=== PATIENT | male | born 1935 | race Caucasian/White ===

== ENCOUNTER 2017-11-06 10:57 | Emergency (ER) | payer MEDICARE, BC ==
[~2017-11-06] VITALS: Ht 172.7 cm; Wt 60.0 kg
[~2017-11-06 10:57] MED LIST: IMIT50TA PO; PROP1TAB; SUBO2MIS PO; SULF10SO3 LEFT EYE; TRAZ50TA12 PO
[2017-11-06 11:20] VITALS: BP 147/87; PULSE 62; RESP 17; TEMP 98.7; O2SAT 97
[2017-11-06] MEDS ORDERED: SODIUM CHLORIDE 0.9% FLUSH 10 ML FLUSH IV FLUSH PRN (12:15)
--- NOTE | 2017-11-06 12:19 | PD ---
HPI . Weakness Chief Complaint: General Weakness Time Seen by Provider: 12:01 Travel History International Travel<30 days: No Contact w/Intl Traveler<30days: No Traveled to known affect area: No History of Present Illness HPI Patient presents with ongoing symptoms of weakness and anxiety for many months. He states that it has been getting worse for the last 2 weeks. He reports nausea, poor appetite, weight loss, insomnia and anxiety. He states that he was evaluated and [facility] with a CT of his abdomen and pelvis and an EGD in about May and that these studies were normal. He is unaware of any modifying factors. [facility], LATER [facility] Past Medical History Arthritis: Yes (L5) Asthma: No Autoimmune Disease: No Anxiety: Yes Depression: Yes Heart Rhythm Problems: No Cancer: Yes (Basal Cell Skin CA 2012) Cardiovascular Problems: Yes High Cholesterol: No Chemotherapy: No Chest Pain: No Congestive Heart Failure: No COPD: No Cerebrovascular Accident: No Diabetes: No Diminished Hearing: No Gastrointestinal Disorders: Yes (becomes constipated easily; manages with daily Miralax) GERD: No Genitourinary: No Headaches: Yes Hiatal Hernia: No Heparin Induced Thrombocytopen: No Hypertension: Yes Immune Disorder: No Implanted Vascular Access Dvce: No Kidney Stones: No Musculoskeletal: Yes (L hip Fx 1 year ago) Neurologic: No Psychiatric: Yes Reproductive: No Respiratory: Yes (BRONCHIAL PNEUMONIA as a child) Migraines: No Pneumonia: Yes ( CHILD) 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) Renal Failure: No Seizures: No Sickle Cell Disease: No Sleep Apnea: No Thyroid Disease: No Ulcer: No Tetanus Vaccination: Never Vaccinated Influenza Vaccination: No Past Surgical History AICD: No Arteriovenous Shunt: No Eye Surgery: Yes (L eye cataract w/ lens) Insulin Pump: No Joint Replacement: No Pacemaker: No Tonsillectomy: Yes Other Surgery: Yes (SINUS SX.,SKIN CANCER REMOVAL) Social History Alcohol Use: No Tobacco Use: No Substance Use: No Allergies-Medications (Allergen,Severity, Reaction): Coded Allergies: tramadol (Unverified Allergy, Severe, HIVES, 11/06/17) hydrocodone (Unverified Allergy, Intermediate, Hives, 11/06/17) oxycodone (Unverified Allergy, Unknown, 11/06/17) causes some itching but no hives according to pt and he also states that it keeps him awake Uncoded Allergies: Percocet (Adverse Reaction, Unknown, Nausea/Vomiting, 12/19/15) Pt states that Percocet causes nausea but that taking Oxycodone alone causes no side effects Reported Meds & Prescriptions Reported Meds & Active Scripts Active Sulfacetamide Opth Drops 10 % Soln 1 Drop LEFT EYE Q2H Reported Imitrex (Sumatriptan Succinate) 50 Mg Tab 50 Mg PO ONCE PRN If a satisfactory response has not been obtained at 2 hours, a second dose may be administered Propecia (Finasteride (Alopecia)) 1 Mg Tab Suboxone Sublingual Film (Buprenorphine-Naloxone Sublingual Film) Unknown Strength Film 2 Mg PO BID Unique ID number required: Trazodone (Trazodone HCl) Unknown Strength Tab Unknown Dose PO HS Review of Systems Except as stated in HPI: all other systems reviewed are Neg General / Constitutional: Positive: Weight Loss, No: Fever, Chills Gastrointestinal: Positive: Nausea, Loss of Appetite, No: Vomiting, Diarrhea Genitourinary: No: Urgency, Frequency, Dysuria Physical Exam Narrative GENERAL: Patient is lying on the stretcher awake and alert and able to converse with me without difficulty. Weight today is 60 kg. That gives him a BMI of 20. SKIN: warm/dry. Normal color and turgor. HEAD: Normocephalic. Atraumatic. EYES: Pupils equal and round. No scleral icterus. No injection or drainage. ENT: No nasal bleeding or discharge. Mucous membranes pink and moist. NECK: Trachea midline. Full range of motion without pain.. CARDIOVASCULAR: Regular rate and rhythm. Heart sounds normal. RESPIRATORY: No accessory muscle use. Clear to auscultation. Breath sounds equal bilaterally. GASTROINTESTINAL: Abdomen soft. Nontender. Bowel sounds present. Nondistended. MUSCULOSKELETAL: No obvious deformities. NEUROLOGICAL: Awake and alert. No obvious cranial nerve deficits. Motor grossly within normal limits. Normal speech. PSYCHIATRIC: Appropriate mood and affect; insight and judgment normal. Data Data Last Documented VS Vital Signs Date Time Temp Pulse Resp B/P (MAP) Pulse Ox O2 Delivery O2 Flow Rate FiO2 11/06/17 11:20 98.7 62 17 147/87 (107) 97 Orders Orders Complete Blood Count With Diff (11/06/17 12:07) Comprehensive Metabolic Panel (11/06/17 12:07) Lactic Acid (11/06/17 12:07) Urinalysis - C+S If Indicated (11/06/17 12:07) Iv Access Insert/Monitor (11/06/17 12:07) Sodium Chloride 0.9% Flush (Ns Flush) (11/06/17 12:15) Electrocardiogram (11/06/17 12:07) Cath For Specimen (11/06/17 14:06) Labs Laboratory Tests Test 11/06/17 12:30 11/06/17 14:25 White Blood Count 6.0 TH/MM3 Red Blood Count 4.20 MIL/MM3 Hemoglobin 13.2 GM/DL Hematocrit 37.9 % Mean Corpuscular Volume 90.4 FL Mean Corpuscular Hemoglobin 31.4 PG Mean Corpuscular Hemoglobin Concent 34.7 % Red Cell Distribution Width 11.3 % Platelet Count 215 TH/MM3 Mean Platelet Volume 7.2 FL Neutrophils (%) (Auto) 54.1 % Lymphocytes (%) (Auto) 30.2 % Monocytes (%) (Auto) 12.2 % Eosinophils (%) (Auto) 2.9 % Basophils (%) (Auto) 0.6 % Neutrophils # (Auto) 3.3 TH/MM3 Lymphocytes # (Auto) 1.8 TH/MM3 Monocytes # (Auto) 0.7 TH/MM3 Eosinophils # (Auto) 0.2 TH/MM3 Basophils # (Auto) 0.0 TH/MM3 CBC Comment DIFF FINAL Differential Comment Blood Urea Nitrogen 15 MG/DL Creatinine 0.77 MG/DL Random Glucose 96 MG/DL Total Protein 6.7 GM/DL Albumin 3.4 GM/DL Calcium Level 8.6 MG/DL Alkaline Phosphatase 58 U/L Aspartate Amino Transf (AST/SGOT) 18 U/L Alanine Aminotransferase (ALT/SGPT) 13 U/L Total Bilirubin 0.7 MG/DL Sodium Level 128 MEQ/L Potassium Level 3.9 MEQ/L Chloride Level 94 MEQ/L Carbon Dioxide Level 26.4 MEQ/L Anion Gap 8 MEQ/L Estimat Glomerular Filtration Rate 97 ML/MIN Lactic Acid Level 1.6 mmol/L Urine Collection Type CLEAN CATCH Urine Color YELLOW Urine Turbidity CLEAR Urine pH 6.0 Urine Specific [place] 1.016 Urine Protein NEG mg/dL Urine Glucose (UA) NEG mg/dL Urine Ketones NEG mg/dL Urine Occult Blood NEG Urine Nitrite NEG Urine Bilirubin NEG Urine Leukocyte Esterase NEG Urine RBC 0-3 /hpf Urine WBC 3-5 /hpf Urine Squamous Epithelial Cells 0-5 /hpf Urine Amorphous Sediment FEW Microscopic Urinalysis Comment CULT NOT INDICATED Urine Collection Time 1429 MDM Medical Decision Making Medical Screen Exam Complete: Yes Emergency Medical Condition: Yes Medical Record Reviewed: Yes (this patient is on Suboxone. Chronic medical conditions include glaucoma, degenerative disc disease and chronic back pain. Medications include Suboxone, trazodone, Imitrex and sulfacetamide eyedrops. Allergies include Percocet, Vicodin and Ultram. There are no previous weights reported in his records.) Interpretation(s) EKG shows a sinus rhythm with no acute ischemic changes Differential Diagnosis Differential diagnosis of weakness includes but is not limited to infection, CVA , electrolyte disturbance, renal failure, hypoglycemia, UTI, ACS, acute blood loss Narrative Course This patient presents with the nonspecific complaint of weakness. Onset has been many months. He does not appear acutely ill. He looks well-hydrated. Basic labs are pending. CBC & BMP Diagram 11/06/17 12:30 Total Protein 6.7, Albumin 3.4, Calcium Level 8.6, Alkaline Phosphatase 58, Aspartate Amino Transf (AST/SGOT) 18, Alanine Aminotransferase (ALT/SGPT) 13, Total Bilirubin 0.7 This low sodium is not abnormal for him. UA is negative. The history, exam, diagnostic testing, and current condition do not suggest any significant pathology to warrant further testing, continued ED treatment, admission, or surgical evaluation at this point. No EMC was found. The patient 's condition is stable and appropriate for discharge. Diagnosis Primary Impression: Weakness Patient Instructions: General Instructions, Weakness (DC) Disposition: 01 DISCHARGE HOME Condition: Stable Keira Pardo MD Nov 06, 2017 12:19
[2017-11-06 12:43] LABS: AUTOMATED NEUTROPHIL # 3.3 TH/MM3 (1.8-7.7); BASOPHIL % 0.6 % (0.0-2.0); EOSINOPHIL # 0.2 TH/MM3 (0-0.4); EOSINOPHIL % 2.9 % (0.0-4.0); HEMATOCRIT 37.9 % (39.0-51.0); HEMOGLOBIN 13.2 GM/DL (13.0-17.0); LYMPH % 30.2 % (9.0-44.0); LYMPHOCYTE # 1.8 TH/MM3 (1.0-4.8); MEAN CELL VOLUME 90.4 FL (80.0-100.0); MEAN CORPUSCULAR HEMOGLOBIN 31.4 PG (27.0-34.0); MEAN CORPUSCULAR HGB CONC 34.7 % (32.0-36.0); MEAN PLATELET VOLUME 7.2 FL (7.0-11.0); MONO % 12.2 % (0.0-8.0); MONOCYTE # 0.7 TH/MM3 (0-0.9); NEUT % 54.1 % (16.0-70.0); PLATELET COUNT 215 TH/MM3 (150-450); RED CELL DISTRIBUTION WIDTH 11.3 % (11.6-17.2)
[2017-11-06 12:50] LABS: CHLORIDE 94 MEQ/L (98-107); SODIUM (NA) 128 MEQ/L (136-145)
[2017-11-06 12:54] LABS: CALCIUM 8.6 MG/DL (8.5-10.1)
[2017-11-06 12:55] LABS: ALBUMIN 3.4 GM/DL (3.4-5.0); BICARBONATE 26.4 MEQ/L (21.0-32.0); BLOOD UREA NITROGEN 15 MG/DL (7-18); GLUCOSE,RANDOM 96 MG/DL (74-106)
[2017-11-06 12:58] LABS: ALT (GPT) 13 U/L (12-78); AST (GOT) 18 U/L (15-37); CREATININE 0.77 MG/DL (0.60-1.30); GLOMERULAR FILTRATION RATE 97 ML/MIN (>89)
[2017-11-06 13:00] LABS: ALKALINE PHOSPHATASE 58 U/L (45-117); TOTAL BILIRUBIN ADULT 0.7 MG/DL (0.2-1.0); TOTAL PROTEIN 6.7 GM/DL (6.4-8.2)
[2017-11-06 14:33] LABS: BILIRUBIN, URINE NEG (NEG); BLOOD, URINE NEG (NEG); GLUCOSE,URINE NEG (NEG); KETONE, URINE NEG (NEG); NITRITE,URINE NEG (NEG); URINE LEUKOCYTE ESTERASE NEG (NEG)
[2017-11-06 14:41] LABS: URINE COLOR YELLOW (YELLW/STRAW)
[2017-11-06 14:42] LABS: AMORPHOUS SEDIMENT, URINE FEW; RBC, URINE 0-3 /hpf (0-3); SQUAMOUS EPITHELIAL CELL URINE 0-5 /hpf (0-5)
--- NOTE | 2017-11-07 19:19 | EKG ---
Date Performed: 11/06/2017 Time Performed: 12:17:26 PTAGE: 82 years EKG: SINUS BRADYCARDIA WITH SINUS ARRHYTHMIA POSSIBLE RIGHT VENTRICULAR CONDUCTION DELAY BORDERL INE ECG Since the prior tracing, there has been no significant change PREVIOUS TRACING : 12/15/13 @1307 DOCTOR: Jan Calzada Interpretating Date/Time 11/07/2017 19:19:18
== END 2017-11-06 15:20 | disposition home or self-care (01) ==
LOC: PHED 10:57
DX: R53.1 Weakness (principal); R11.0 Nausea; R63.0 Anorexia; R63.4 Abnormal weight loss; G47.00 Insomnia, unspecified; F41.9 Anxiety disorder, unspecified; R94.31 Abnormal electrocardiogram [ECG] [EKG]; F32.9 Major depressive disorder, single episode, unspecified; I10 Essential (primary) hypertension; H40.9 Unspecified glaucoma; Z85.828 Personal history of other malignant neoplasm of skin; Z87.19 Personal history of other diseases of the digestive system
CPT/HCPCS: 80053; 81001; 83605; 85025; 93005; 99284

== ENCOUNTER 2017-12-09 00:53 | Observation (INO) | payer MEDICARE, BC ==
[2017-12-09] VITALS (14 sets, daily range): BP systolic 123–182; BP diastolic 58–89; PULSE 52–66; RESP 12–20; TEMP 97.8–98.2; O2SAT 96–100
[~2017-12-09] VITALS: Ht 177.8 cm; Wt 75.0 kg
[2017-12-09] MEDS ORDERED: SODIUM CHLOR 0.9% 1000 ML INJ 1,000 ML IV SCH (01:06)
[2017-12-09] MEDS ORDERED: BUSP5TAB PO (01:08)
[2017-12-09 01:33] LABS: AUTOMATED NEUTROPHIL # 3.4 TH/MM3 (1.8-7.7); BASOPHIL % 0.3 % (0.0-2.0); EOSINOPHIL # 0.5 TH/MM3 (0-0.4); EOSINOPHIL % 7.2 % (0.0-4.0); HEMATOCRIT 39.1 % (39.0-51.0); HEMOGLOBIN 13.5 GM/DL (13.0-17.0); LYMPH % 29.9 % (9.0-44.0); MEAN CELL VOLUME 91.9 FL (80.0-100.0); MEAN CORPUSCULAR HEMOGLOBIN 31.7 PG (27.0-34.0); MEAN CORPUSCULAR HGB CONC 34.5 % (32.0-36.0); MEAN PLATELET VOLUME 7.8 FL (7.0-11.0); MONO % 12.2 % (0.0-8.0); MONOCYTE # 0.8 TH/MM3 (0-0.9); NEUT % 50.4 % (16.0-70.0); PLATELET COUNT 168 TH/MM3 (150-450); RED BLOOD COUNT 4.26 MIL/MM3 (4.50-5.90); RED CELL DISTRIBUTION WIDTH 12.5 % (11.6-17.2); WHITE BLOOD COUNT 6.8 TH/MM3 (4.0-11.0)
--- NOTE | 2017-12-09 01:36 | RADRPT ---
EXAM DATE/TIME: 12/09/2017 01:23 [facility] COMPARISON: No previous studies available for comparison. INDICATIONS : Altered mental status. RADIATION DOSE: 64.63 CTDIvol (mGy) MEDICAL HISTORY : Cardiovascular disease. Hernia, hiatal. Hypertension. SURGICAL HISTORY : None. ENCOUNTER: Initial ACUITY: 1 day PAIN SCALE: Non-responsive LOCATION: cranial TECHNIQUE: Multiple contiguous axial images were obtained of the head. Using automated exposure control and adj ustment of the mA and/or kV according to patient size, radiation dose was kept as low as reasonably a chievable to obtain optimal diagnostic quality images. DICOM format image data is available electro nically for review and comparison. FINDINGS: CEREBRUM: Mild cortical and central atrophy. Significant periventricular small vessel ischemic demyelination. No evidence of midline shift, mass lesion, hemorrhage or acute infarction. No extra-axial fluid darlene ections are seen. POSTERIOR FOSSA: The cerebellum and brainstem are intact. The 4th ventricle is midline. The cerebellopontine angle i s unremarkable. EXTRACRANIAL: The visualized portion of the orbits is intact. SKULL: The calvaria is intact. No evidence of skull fracture. CONCLUSION: 1. Chronic changes with some cortical and central atrophy as well as moderately severe periventricula r small vessel ischemic demyelination. 2. Nothing acute. Phani Guerrero MD on December 09, 2017 at 1:33 Board Certified Radiologist. This report was verified electronically.
[2017-12-09 01:51] LABS: ALBUMIN 3.4 GM/DL (3.4-5.0); ALT (GPT) 19 U/L (12-78); AST (GOT) 29 U/L (15-37); BICARBONATE 27.7 MEQ/L (21.0-32.0); BLOOD UREA NITROGEN 19 MG/DL (7-18); CALCIUM 8.3 MG/DL (8.5-10.1); CHLORIDE 100 MEQ/L (98-107); GLOMERULAR FILTRATION RATE 72 ML/MIN (>89); GLUCOSE,RANDOM 93 MG/DL (74-106); SODIUM (NA) 136 MEQ/L (136-145)
[2017-12-09 01:55] LABS: ALKALINE PHOSPHATASE 64 U/L (45-117); PROTHROMBIN TIME - PATIENT 10.6 SEC (9.8-11.6); TOTAL BILIRUBIN ADULT 0.7 MG/DL (0.2-1.0); TOTAL PROTEIN 7.1 GM/DL (6.4-8.2); TROPONIN I LESS THAN 0.02 NG/ML (0.02-0.05)
[2017-12-09 01:57] LABS: ACETAMINOPHEN LESS THAN 2.0 MCG/ML (10.0-30.0)
--- NOTE | 2017-12-09 02:24 | RADRPT ---
EXAM DATE/TIME: 12/09/2017 01:42 [facility] COMPARISON: CHEST SINGLE AP, November 30, 2015, 17:28. INDICATIONS : Confusion, nausea, weakness, unable to stand. MEDICAL HISTORY : None. SURGICAL HISTORY : None. ENCOUNTER: Initial ACUITY: 1 day PAIN SCORE: Non-responsive. LOCATION: Bilateral chest FINDINGS: A single view of the chest demonstrates the lungs to be symmetrically hypoinflated with bibasilar ate lectatic changes. Accounting for low lung lines, heart size is normal. Osseous structures are intact. CONCLUSION: Hypoinflation with bibasilar atelectatic changes. Phani Guerrero MD on December 09, 2017 at 2:22 Board Certified Radiologist. This report was verified electronically.
[2017-12-09] MEDS: SODIUM CHLORIDE 0.9% FLUSH 10 ML FLUSH IV FLUSH PRN (03:28)
[2017-12-09 04:19] LABS: BACTERIA, URINE RARE /hpf; BILIRUBIN, URINE NEG (NEG); BLOOD, URINE NEG (NEG); GLUCOSE,URINE NEG (NEG); KETONE, URINE NEG (NEG); MUCUS URINE FEW /lpf (OCC); NITRITE,URINE NEG (NEG); SQUAMOUS EPITHELIAL CELL URINE <1 /hpf (0-5); URINE COLOR YELLOW (YELLW/STRAW); URINE LEUKOCYTE ESTERASE NEG (NEG)
[2017-12-09] MEDS ORDERED: NALOXONE HCL 0.4 MG/ML AMP IV PUSH PRN (04:30)
--- NOTE | 2017-12-09 05:05 | PD ---
HPI Chief Complaint: Altered Mental Status Time Seen by Provider: 01:06 Travel History International Travel<30 days: No Contact w/Intl Traveler<30days: No Traveled to known affect area: No History of Present Illness HPI Patient is an 82 year old male BIBEMS due to AMS. EMS states he was found in the bathroom by family on the ground. Per , he takes Suboxone for pain and was recently started on Xanax for anxiety. He also take Phenergan for nausea, an antidepressant and marijuana candy. Patient is awake, but very confused and does not provide any history. PFSH Past Medical History Arthritis: Yes (L5) Asthma: No Autoimmune Disease: No Anxiety: Yes Depression: Yes Heart Rhythm Problems: No Cancer: Yes (Basal Cell Skin CA 2012) Cardiovascular Problems: Yes High Cholesterol: No Chemotherapy: No Chest Pain: No Congestive Heart Failure: No COPD: No Cerebrovascular Accident: No Diabetes: No Diminished Hearing: No Gastrointestinal Disorders: Yes (becomes constipated easily; manages with daily Miralax) GERD: No Genitourinary: No Headaches: Yes Hiatal Hernia: No Heparin Induced Thrombocytopen: No Hypertension: Yes Immune Disorder: No Implanted Vascular Access Dvce: No Kidney Stones: No Musculoskeletal: Yes (L hip Fx 1 year ago) Neurologic: No Psychiatric: Yes Reproductive: No Respiratory: Yes (BRONCHIAL PNEUMONIA as a child) Migraines: No Pneumonia: Yes ( CHILD) 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) Renal Failure: No Seizures: No Sickle Cell Disease: No Sleep Apnea: No Thyroid Disease: No Ulcer: No Past Surgical History AICD: No Arteriovenous Shunt: No Eye Surgery: Yes (L eye cataract w/ lens) Insulin Pump: No Joint Replacement: No Pacemaker: No Tonsillectomy: Yes Other Surgery: Yes (SINUS SX.,SKIN CANCER REMOVAL) Social History Alcohol Use: No Tobacco Use: No Substance Use: No Allergies-Medications (Allergen,Severity, Reaction): Coded Allergies: tramadol (Unverified Allergy, Severe, HIVES, 12/09/17) hydrocodone (Unverified Allergy, Intermediate, Hives, 12/09/17) oxycodone (Unverified Allergy, Unknown, 12/09/17) causes some itching but no hives according to pt and he also states that it keeps him awake Uncoded Allergies: Percocet (Adverse Reaction, Unknown, Nausea/Vomiting, 12/19/15) Pt states that Percocet causes nausea but that taking Oxycodone alone causes no side effects Reported Meds & Prescriptions Reported Meds & Active Scripts Active Reported Buspirone (Buspirone HCl) 5 Mg Tab 5 Mg PO BID Imitrex (Sumatriptan Succinate) 50 Mg Tab 50 Mg PO ONCE PRN If a satisfactory response has not been obtained at 2 hours, a second dose may be administered Propecia (Finasteride (Alopecia)) 1 Mg Tab Suboxone Sublingual Film (Buprenorphine-Naloxone Sublingual Film) Unknown Strength Film 2 Mg PO BID Unique ID number required: Trazodone (Trazodone HCl) Unknown Strength Tab Unknown Dose PO HS Review of Systems ROS Limitations: Unresponsive Physical Exam Exam Limitations: Altered Mental Status Narrative GENERAL: Altered, but is awake. SKIN: Focused skin assessment warm/dry. No wounds or signs of infection. HEAD: Atraumatic. Normocephalic. EYES: Pupils equal and round and reactive. No scleral icterus. EOMI. ENT: Mucous membranes pink and moist. NECK: Trachea midline. No JVD. CARDIOVASCULAR: Regular rate and rhythm. No murmur appreciated. RESPIRATORY: No accessory muscle use. Clear to auscultation. Breath sounds equal bilaterally. GASTROINTESTINAL: Abdomen soft, non-tender, nondistended. MUSCULOSKELETAL: No obvious deformities. No clubbing. No cyanosis. No edema. NEUROLOGICAL: Lethargic, but awakens. No obvious cranial nerve deficits. Not moving his left side. Data Data Last Documented VS Vital Signs Date Time Temp Pulse Resp B/P (MAP) Pulse Ox O2 Delivery O2 Flow Rate FiO2 12/09/17 01:17 55 14 154/74 (100) 99 Nasal Cannula 2.00 12/09/17 01:08 97.8 Orders Orders Electrocardiogram (12/09/17 01:06) Ammonia (12/09/17 01:06) Complete Blood Count With Diff (12/09/17 01:06) Comprehensive Metabolic Panel (12/09/17 01:06) Prothrombin Time / Inr (Pt) (12/09/17 01:06) Act Partial Throm Time (Ptt) (12/09/17 01:06) Troponin I (12/09/17 01:06) Urinalysis - C+S If Indicated (12/09/17 01:06) Lactic Acid Sepsis Protocol (12/09/17 01:06) Chest, Single Ap (12/09/17 01:06) Ct Brain W/O Iv Contrast(Rout) (12/09/17 01:06) Blood Glucose (12/09/17 01:06) Ecg Monitoring (12/09/17 01:06) Iv Access Insert/Monitor (12/09/17 01:06) Cath For Specimen (12/09/17 01:06) Oximetry (12/09/17 01:06) Sodium Chloride 0.9% Flush (Ns Flush) (12/09/17 01:15) Sodium Chlor 0.9% 1000 Ml Inj (Ns 1000 M (12/09/17 01:06) Drug Screen, Random Urine (12/09/17 01:06) Alcohol (Ethanol) (12/09/17 01:06) Tylenol (Acetaminophen) (12/09/17 01:06) Salicylates (Aspirin) (12/09/17 01:06) Admit Order (Ed Use Only) (12/09/17 ) Labs Laboratory Tests Test 12/09/17 01:10 12/09/17 01:15 Lactic Acid Level 1.1 mmol/L White Blood Count 6.8 TH/MM3 Red Blood Count 4.26 MIL/MM3 Hemoglobin 13.5 GM/DL Hematocrit 39.1 % Mean Corpuscular Volume 91.9 FL Mean Corpuscular Hemoglobin 31.7 PG Mean Corpuscular Hemoglobin Concent 34.5 % Red Cell Distribution Width 12.5 % Platelet Count 168 TH/MM3 Mean Platelet Volume 7.8 FL Neutrophils (%) (Auto) 50.4 % Lymphocytes (%) (Auto) 29.9 % Monocytes (%) (Auto) 12.2 % Eosinophils (%) (Auto) 7.2 % Basophils (%) (Auto) 0.3 % Neutrophils # (Auto) 3.4 TH/MM3 Lymphocytes # (Auto) 2.0 TH/MM3 Monocytes # (Auto) 0.8 TH/MM3 Eosinophils # (Auto) 0.5 TH/MM3 Basophils # (Auto) 0.0 TH/MM3 CBC Comment DIFF FINAL Differential Comment Prothrombin Time 10.6 SEC Prothromb Time International Ratio 1.0 RATIO Activated Partial Thromboplast Time 25.2 SEC Blood Urea Nitrogen 19 MG/DL Creatinine 1.00 MG/DL Random Glucose 93 MG/DL Total Protein 7.1 GM/DL Albumin 3.4 GM/DL Calcium Level 8.3 MG/DL Alkaline Phosphatase 64 U/L Aspartate Amino Transf (AST/SGOT) 29 U/L Alanine Aminotransferase (ALT/SGPT) 19 U/L Total Bilirubin 0.7 MG/DL Sodium Level 136 MEQ/L Potassium Level 4.5 MEQ/L Chloride Level 100 MEQ/L Carbon Dioxide Level 27.7 MEQ/L Anion Gap 8 MEQ/L Estimat Glomerular Filtration Rate 72 ML/MIN Troponin I LESS THAN 0.02 NG/ML Salicylates Level LESS THAN 1.7 MG/DL Acetaminophen Level LESS THAN 2.0 MCG/ML Ethyl Alcohol Level LESS THAN 3 MG/DL [facility] Medical Decision Making Medical Screen Exam Complete: Yes Emergency Medical Condition: Yes Medical Record Reviewed: Yes Interpretation(s) ECG shows sinus bradycardia at a rate of 54, no ST elevation or depression Differential Diagnosis drug overdose vs sepsis vs electrolyte abnormalities Narrative Course Patient is an 82 year old male BIBEMS due to AMS. Patient is confused, unable to provide history. IV established, labs sent. Labs show no acute abnormalities. CT head performed shows no acute abnormalities. CXR shows no acute abnormalities. Last [address] 12/09/17105 Signed Impressions: Service Date/Time: Saturday, December 09, 2017 01:23 - CONCLUSION: 1. Chronic changes with some cortical and central atrophy as well as moderately severe periventricular small vessel ischemic demyelination. 2. Nothing acute. Phani Guerrero MD Chest X-Ray 12/09/17105 Signed Impressions: Service Date/Time: Saturday, December 09, 2017 01:42 - CONCLUSION: Hypoinflation with bibasilar atelectatic changes. Phani Guerrero MD This is likely drug interaction/overdose. Patient is still altered. Will place in observation for further management. Diagnosis Primary Impression: Altered mental status Qualified Codes: R41.82 - Altered mental status, unspecified Admitting Information Admitting Physician Requests: Radha Valerio MD Dec 09, 2017 05:05
[2017-12-09] MEDS ORDERED: QUET1TAB7 PO (06:52)
[2017-12-09] MEDS ORDERED: PROM25TA10 PO (06:52)
[2017-12-09] MEDS ORDERED: PANT40TA3 PO (06:52)
[2017-12-09] MEDS ORDERED: BUPR75TA PO (06:52)
[2017-12-09] MEDS ORDERED: ONDA8TAB8 PO (06:52)
[2017-12-09] MEDS ORDERED: ALPR0.5T3 PO (06:52)
[2017-12-09] MEDS ORDERED: VORT1TAB2 PO (06:52)
[2017-12-09] MEDS: busPIRone HCL 5 MG TAB PO SCH ×2 (09:57→21:32)
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
[2017-12-09] MEDS ORDERED: MAGNESIUM HYDROXIDE SUSP 30 ML CUP PO PRN (15:45)
[2017-12-09] MEDS ORDERED: BISACODYL 10 MG SUPP RECTAL PRN (15:45)
[2017-12-09] MEDS ORDERED: LACTULOSE SYRUP 20 GM/30 ML CUP PO PRN (15:45)
[2017-12-09] MEDS ORDERED: ACETAMINOPHEN 325 MG TAB PO PRN (15:45)
[2017-12-09] MEDS ORDERED: SENNOSIDES 8.6 MG TAB PO PRN (15:45)
[2017-12-09] MEDS ORDERED: cloNIDine HCL 0.1 MG TAB PO PRN (16:15)
[2017-12-09] MEDS: PANTOPRAZOLE SOD 40 MG DELAYED RELEASE TAB PO SCH (16:55)
--- NOTE | 2017-12-09 18:07 | EKG ---
Date Performed: 12/09/2017 Time Performed: 01:14:17 PTAGE: 82 years EKG: SINUS BRADYCARDIA WITH SINUS ARRHYTHMIA WITH FIRST DEGREE AV BLOCK ABNORMAL ECG Since PREVIOUS TRACING , no significant change noted PREVIOUS TRACIN11/06/2017 12.17.26 DOCTOR: Alessandro Painting Interpretating Date/Time 12/09/2017 18:06:30
[2017-12-09] MEDS: DOCUSATE SODIUM 50 MG/SENNA 8.6 MG TAB PO SCH (21:32)
[2017-12-10] VITALS (7 sets, daily range): BP systolic 126–164; BP diastolic 62–81; PULSE 66–74; RESP 16–18; TEMP 97.7–98; O2SAT 93–98
[2017-12-10] MEDS: ONDANSETRON HCL 4 MG/2 ML VIAL IVP PRN ×3 (01:57→14:17)
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
[2017-12-10] MEDS: DOCUSATE SODIUM 50 MG/SENNA 8.6 MG TAB PO SCH (08:04)
[2017-12-10] MEDS: PANTOPRAZOLE SOD 40 MG DELAYED RELEASE TAB PO SCH (08:04)
[2017-12-10] MEDS: SODIUM CHLORIDE 0.9% FLUSH 10 ML FLUSH IV FLUSH PRN (08:04)
[2017-12-10] MEDS: busPIRone HCL 5 MG TAB PO SCH (08:04)
[2017-12-10 08:15] LABS: AUTOMATED NEUTROPHIL # 3.7 TH/MM3 (1.8-7.7); BASOPHIL % 0.2 % (0.0-2.0); EOSINOPHIL # 0.2 TH/MM3 (0-0.4); EOSINOPHIL % 3.9 % (0.0-4.0); HEMATOCRIT 37.8 % (39.0-51.0); HEMOGLOBIN 13.1 GM/DL (13.0-17.0); LYMPH % 23.8 % (9.0-44.0); LYMPHOCYTE # 1.5 TH/MM3 (1.0-4.8); MEAN CELL VOLUME 90.7 FL (80.0-100.0); MEAN CORPUSCULAR HEMOGLOBIN 31.3 PG (27.0-34.0); MEAN CORPUSCULAR HGB CONC 34.5 % (32.0-36.0); MEAN PLATELET VOLUME 7.4 FL (7.0-11.0); MONO % 11.5 % (0.0-8.0); MONOCYTE # 0.7 TH/MM3 (0-0.9); NEUT % 60.6 % (16.0-70.0); PLATELET COUNT 181 TH/MM3 (150-450); RED BLOOD COUNT 4.17 MIL/MM3 (4.50-5.90); RED CELL DISTRIBUTION WIDTH 12.1 % (11.6-17.2); WHITE BLOOD COUNT 6.2 TH/MM3 (4.0-11.0)
--- NOTE | 2017-12-10 08:26 | HHI.PR ---
Subjective Remarks Improved some. Patient states. Is more alert and oriented. Says he is not able to eat much. Says he does not have appetite. He also complains of epigastric pain.. No nausea vomiting no diarrhea or constipation. Feels very tired. Objective Vitals Vital Signs Date Time Temp Pulse Resp B/P (MAP) Pulse Ox O2 Delivery O2 Flow Rate FiO2 12/10/17 04:22 74 12/10/17 03:08 98.0 72 16 164/78 (106) 98 12/10/17 00:17 68 12/10/17 00:16 97.7 68 17 126/66 (86) 97 12/09/17 20:46 98.2 66 18 123/58 (79) 96 12/09/17 18:53 59 145/89 (107) 12/09/17 15:36 98.2 56 20 182/78 (112) 98 12/09/17 13:37 60 18 142/76 (98) 96 12/09/17 10:07 58 18 143/69 (93) 98 Room Air I/O 12/09/17 12/09/17 12/09/17 12/10/17 12/10/17 12/10/17 07:00 15:00 23:00 07:00 15:00 23:00 Intake Total 1000 ml 400 ml Balance 1000 ml 400 ml Intake Oral 400 ml IV Total 1000 ml # Voids 2 Result Diagram: 12/10/1728 12/09/17 011 Imaging Last Impressions Head CT 12/09/17 0106 Signed Impressions: Service Date/Time: Saturday, December 09, 2017 01:23 - CONCLUSION: 1. Chronic changes with some cortical and central atrophy as well as moderately severe periventricular small vessel ischemic demyelination. 2. Nothing acute. Phani Guerrero MD Chest X-Ray 12/09/17 010 Signed Impressions: Service Date/Time: Saturday, December 09, 2017 01:42 - CONCLUSION: Hypoinflation with bibasilar atelectatic changes. Phani Guerrero MD Objective Remarks GENERAL: This is a well-nourished, well-developed patient, in no apparent distress. CARDIOVASCULAR: Regular rate and rhythm without murmurs, gallops, or rubs. RESPIRATORY: Clear to auscultation. Breath sounds equal bilaterally. No wheezes , rales, or rhonchi. GASTROINTESTINAL: Abdomen soft, non-tender, nondistended. MUSCULOSKELETAL: Extremities without clubbing, cyanosis, or edema. NEUROLOGICAL: Awake and alert. Oriented to place, year, month, president, person. Cranial nerves II through XII intact. Motor and sensory grossly within normal limits. Bilateral upper extremity equal strength, bilateral lower extremity equal strength all extremities with good strength. normal speech. A/P Problem List: (1) Encephalopathy acute ICD Code: G93.40 - Encephalopathy, unspecified (2) Altered mental status ICD Code: R41.82 - Altered mental status, unspecified Status: Acute Assessment and Plan Patient is an 82 year old male with primary medical history of spondylosis, anxiety, peripheral neuropathy, skin cancer, chronic lumbar pain, HTN who came into the hospital status post fall, altered mental status. Encephalopathy, acute, improving Generalized weakness, improving -Possibly secondary to polypharmacy -Hold off on Suboxone, Xanax, Phenergan -CT of the head showed 1. Chronic changes with some cortical and central atrophy as well as moderately severe periventricular small vessel ischemic demyelination. Nothing acute. -Chest x-ray showed hyperinflation with basilar atelectasis changes -Ammonia level is 18. -Neuro checks. -Monitor labs. Monitor oxygen saturation -Physical therapy eval and treat -Monitor for withdrawal symptoms Depression, anxiety -Continue BuSpar, trintellex -Hold seroquel, trazodone, Xanax, Phenergan Constipation -Bowel regimen DVT prop Lovenox GI prop pantoprazole Code Status Full code Discussed Condition With Patient, nurse Possible discharge later today for able to eat. Problem Qualifiers (1) Altered mental status: Qualified Codes: R41.82 - Altered mental status, unspecified Maris Duvall MD Dec 10, 2017 08:26
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
[2017-12-10 08:44] LABS: BICARBONATE 24.1 MEQ/L (21.0-32.0); CALCIUM 8.5 MG/DL (8.5-10.1); CREATININE 0.73 MG/DL (0.60-1.30)
[2017-12-10] MEDS ORDERED: VORTIOXETINE 10 MG PO SCH (09:00)
--- NOTE | 2017-12-10 09:58 | HHI.FF ---
Face to Face Verification Diagnosis: (1) Encephalopathy acute (2) Impaired activities of daily living Physical Therapy Order: Evaluate and Treat Home Health Nursing Order: Medical education Medication education-adverse effect Nursing assessment with vital signs I have seen patient Chance Casillas on 12/10/17. My clinical findings support the need for the requested home health care services because: Ltd mobility - disease progression Deconditioned w/ increased weakness Limited ability to care for self High risk of falls I certify that my clinical findings support that this patient is homebound because: Impaired cognitive ability/safety Unsteady gait/balance Trista Yoo Dec 10, 2017 09:58
[2017-12-10] MEDS ORDERED: SUMAtriptan SUCCINATE 50 MG TAB PO PRN (10:45)
[2017-12-10] MEDS ORDERED: SODIUM CHLOR 0.9% 1000 ML INJ 1,000 ML IV SCH (13:45)
[2017-12-10] MEDS ORDERED: PANTOPRAZOLE SOD 40 MG DELAYED RELEASE TAB PO ONE (13:45)
[2017-12-11] MEDS ORDERED: PANTOPRAZOLE SOD 20 MG DELAYED RELEASE TAB PO SCH (09:00)
== END 2017-12-10 16:56 | disposition home or self-care (01) ==
LOC: NEPC 00:53 → NEDA 03:39 → NEDH 09:51 → NEPFCDU 13:54
PROVIDERS: ADMIT Hospitalist; ATTEND Hospitalist
DX: G93.40 Encephalopathy, unspecified (principal); R11.0 Nausea; R51 Headache; I10 Essential (primary) hypertension; W19.XXXA Unspecified fall, initial encounter; Y92.012 Bathroom of single-family (private) house as the place of occurrence of the external cause; F41.9 Anxiety disorder, unspecified; M47.9 Spondylosis, unspecified; M54.5 Low back pain; K59.00 Constipation, unspecified; R10.13 Epigastric pain; R53.1 Weakness; F32.9 Major depressive disorder, single episode, unspecified; Z85.828 Personal history of other malignant neoplasm of skin
CPT/HCPCS: 70450; 71045; 80048; 80053; 80307; 81001; 82140; 83605; 84484; 85025; 85610; 85730; 93005; 96361; 96374; 96376; 97162; 99285; G0378; G8987; G8988; J2405; J7030